=== PATIENT | male | born 1995 | race Hispanic/Latino ===

== ENCOUNTER 2017-11-12 21:13 | Emergency (ER) | payer BC, OTHER ==
[2017-11-12 21:23] VITALS: BP 107/66; PULSE 85; RESP 14; TEMP 99.2; O2SAT 95
--- NOTE | 2017-11-12 21:38 | ED PDOC ---
Upper Extremity Pain/Injury Time Seen by Provider: 11/12/17 21:28 Chief Complaint (Nursing): Upper Extremity Problem/Injury Chief Complaint (Provider): Upper Extremity Problem/Injury History Per: Patient History/Exam Limitations: no limitations Onset/Duration Of Symptoms: Sudden Onset Current Symptoms Are (Timing): Still Present Additional Complaint(s): 22 year old male arrives to ED for an evaluation after he was struck by another player during a game prior to arrival. Also states he is having R sided non- radiating neck pain. He denies any head injury, numbness or tingling. Patient reports having prior injuries to right shoulder without dislocation or fractures. Past Medical History Reviewed: Historical Data, Nursing Documentation, Vital Signs Vital Signs: Last Vital Signs Temp 99.2 F 11/12/17 21:19 Pulse 85 11/12/17 21:19 Resp 14 11/12/17 21:19 BP 107/66 11/12/17 21:19 Pulse Ox 95 11/12/17 21:19 - Medical History PMH: No Chronic Diseases - Surgical History Surgical History: No Surg Hx - Family History Family History: States: No Known Family Hx - Home Medications Home Medications: Ambulatory Orders Medication Instructions Recorded Cyclobenzaprine [Cyclobenzaprine 10 mg PO Q8 PRN #10 tab 11/12/17 HCl] Naproxen [Naprosyn] 500 mg PO BID PRN #10 tab 11/12/17 - Allergies Allergies/Adverse Reactions: Allergies Allergy/AdvReac Type Severity Reaction Status Date / Time No Known Allergies Allergy Verified 11/12/17 21:19 Review of Systems ROS Statement: Except As Marked, All Systems Reviewed And Found Negative Musculoskeletal: Positive for: Neck Pain (right-sided), Shoulder Pain (right- sided) Neurological: Negative for: Numbness (or tingling), Other (head injury) Physical Exam - Reviewed Nursing Documentation Reviewed: Yes Vital Signs Reviewed: Yes - Physical Exam Appears: Positive for: No Acute Distress Head Exam: Positive for: ATRAUMATIC, NORMAL INSPECTION, NORMOCEPHALIC Skin: Positive for: Normal Color, Warm. Negative for: Rash Eye Exam: Positive for: Normal appearance Neck: Positive for: Pain On Movement Of Neck (R sided paracervical muscle spasm) Pulses-Radial (R): 2+ Back: Negative for: Vertebral Tenderness (cervicle-midline) Extremity: Positive for: Capillary Refill (<2 seconds to right shoulder). Negative for: Tenderness (right shoulder or clavicle), Deformity (right shoulder or elbow) Neurologic/Psych: Positive for: Alert, Oriented (x3). Negative for: Aphasia, Facial Droop - ECG O2 Sat by Pulse Oximetry: 95 (RA) Pulse Ox Interpretation: Normal - Radiology X-Ray: Interpreted by Me (R shoulder/clavicle x-ray) X-Ray Interpretation: No Acute Disease - Progress ED Course And Treament: Offered pain meds but refused. Shoulder sling applied. Medical Decision Making Medical Decision Making: Initial Impression: Shoulder pain Initial Plan: * Xray clavicle (right) * Xray shoulder (right) --------- Time: 2135 --Patient declined pain medication when offered by provider. Scribe Attestation: Documented by Lucy Elam, acting as a scribe for Karsten Taylor PA-C. Provider Scribe Attestation: All medical record entries made by the Scribe were at my direction and personally dictated by me. I have reviewed the chart and agree that the record accurately reflects my personal performance of the history, physical exam, medical decision making, and the department course for this patient. I have also personally directed, reviewed, and agree with the discharge instructions and disposition. Disposition - Clinical Impression Clinical Impression: Shoulder injury, Cervical sprain - Patient ED Disposition Is Patient to be Admitted: No - Disposition Referrals: Kamila Grossman [Outside] Jose L Barrow MD [Staff Provider] - Disposition: Routine/Home Disposition Time: 22:30 Condition: STABLE Additional Instructions: DION SIMPSON, thank you for letting us take care of you today. Your provider was Araseli Whitfield MD and you were treated for RT SHOULDER PAIN. The emergency medical care you received today was directed at your acute symptoms. If you were prescribed any medication, please fill it and take as directed. It may take several days for your symptoms to resolve. Return to the Emergency Department if your symptoms worsen, do not improve, or if you have any other problems. Please contact your doctor or call one of the physicians/clinics you have been referred to that are listed on the Patient Visit Information form that is included in your discharge packet. Bring any paperwork you were given at discharge with you along with any medications you are taking to your follow up visit. Our treatment cannot replace ongoing medical care by a primary care provider outside of the emergency department. Thank you for allowing the [facility] team to be part of your care today. If you had an X-Ray or CT scan: A Radiologist will review the ED reading if any change in treatment is needed we will contact you. If you had a blood, urine, or wound culture: It will take several days for the results, if any change in treatment is needed we will contact you. If you had an STI test: It will take 48 hours for the results. Please call after 1 week if you have not heard back. Prescriptions: Cyclobenzaprine [Cyclobenzaprine HCl] 10 mg PO Q8 PRN #10 tab PRN Reason: Muscle Spasm Naproxen [Naprosyn] 500 mg PO BID PRN #10 tab PRN Reason: Pain Instructions: Shoulder Sprain (DC), Neck Sprain (DC) Forms: [employer] (Greek) Print Language: [place]ISH
--- NOTE | 2017-11-13 08:39 | RAD ---
Date of service: 11/12/2017 PROCEDURE: Radiographs of the Right Shoulder HISTORY: trauma COMPARISON: No prior. FINDINGS: BONES: Normal. No fracture. JOINTS: Normal. Glenohumeral and acromioclavicular joints preserved. No osteoarthritis. SOFT TISSUES: Normal. OTHER FINDINGS: None. IMPRESSION: Normal radiographs of the right shoulder.
--- NOTE | 2017-11-13 08:39 | RAD ---
Date of service: 11/12/2017 PROCEDURE: Radiographs of the right clavicle. HISTORY: trauma COMPARISON: None. FINDINGS: RIGHT CLAVICLE: No fracture or focal lesion. JOINTS: Right acromioclavicular and glenohumeral joints are grossly unremarkable. SOFT TISSUES: Grossly unremarkable. OTHER FINDINGS: None. IMPRESSION: Normal radiographs of the right clavicle.
== END 2017-11-12 23:01 | disposition home or self-care (01) ==
LOC: H.ER 21:13
DX: S13.4XXA Sprain of ligaments of cervical spine, initial encounter (principal); M25.511 Pain in right shoulder; Y92.89 Other specified places as the place of occurrence of the external cause